=== PATIENT | female | born 1990 ===

== ENCOUNTER 2021-01-08 07:56 | Emergency (ER) | payer BC, OTHER ==
[~2021-01-08] VITALS: Ht 162.6 cm; Wt 82.1 kg
[2021-01-08 10:09] LABS: Urine Bacteria FEW /hpf (None Seen); Urine Blood Negative /uL (Negative); Urine Mucus FEW (None Seen); Urine Specific Gravity 1.024 (1.001-1.035); Urine WBC 2 /hpf (0 - 5)
[2021-01-08 13:07] VITALS: BP 147/76
== END 2021-01-08 10:30 | disposition home or self-care (01) ==
LOC: ER 07:56
DX: D25.1 Intramural leiomyoma of uterus (principal)
CPT/HCPCS: 76856; 81001; 81025